=== PATIENT | female | born 1945 | race Caucasian/White ===

== ENCOUNTER → 2018-06-15 | Outpatient (CLI) | payer MEDICARE, OTHER ==
--- NOTE | 2018-06-15 14:53 | PCVCIMAG ---
APPROVED REPORT Laterality: Bilateral Indications Stenosis Doppler Spectral Velocity Analysis PSV / EDVPSV / EDV ECA (R) 160 / 28 cm/sECA (L) 83 / 25 cm/s dICA (R) 81 / 27 cm/sdICA (L) 96 / 33 cm/s [place] (R) 118 / 41 cm/smICA (L) 114 / 33 cm/s pICA (R) 138 / 29 cm/spICA (L) 130 / 37 cm/s Bulb (R) 86 / 29 cm/sBulb (L) 94 / 27 cm/s dCCA (R) 90 / 29 cm/sdCCA (L) 118 / 35 cm/s mCCA (R) 86 / 19 cm/smCCA (L) 94 / 27 cm/s Vert (R) 55 / 16 cm/sVert (L) 45 / 10 cm/s ICA/CCA 1.53ICA/CCA 1.10 Findings The right carotid bulb has moderate calcified plaque. The right proximal internal carotid artery shows 40-50% stenosis. The right common carotid artery shows no significant stenosis. The right external carotid artery shows >50% stenosis. The left carotid bulb has moderate calcified plaque. The left proximal internal carotid artery shows 40-50% stenosis. The left common carotid artery shows <40% stenosis. The left external carotid artery shows no significant stenosis. Conclusion 1. Right internal carotid artery stenosis (40-50%) 2. Left internal carotid artery stenosis (40-50%) 3. Antegrade vertebral flow
--- NOTE | 2018-06-15 16:08 | PCVCIMAG ---
EXAM: AORTOILIAC DUPLEX INDICATION: Peripheral arterial disease FINDINGS: AORTA: Suprarenal aorta measures maximum diameter of 2.7 cm. There is a fusiform infrarenal aortic aneurysm. The infrarenal aorta measures maximum diameter of 2.6 x 3.1 cm. No aortic stenosis. RIGHT COMMON ILIAC ARTERY: Maximum diameter is 1.4 cm. No significant stenosis. RIGHT EXTERNAL ILIAC ARTERY: No significant stenosis. LEFT COMMON ILIAC ARTERY: Maximum diameter is 1.5 cm. 90% stenosis LEFT EXTERNAL ILIAC ARTERY: No significant stenosis. IMPRESSION: 3.1 cm infrarenal abdominal aortic aneurysm. No right iliac stenosis. 90% stenosis proximal/mid left common iliac artery. LOC:[place] [id number]
--- NOTE | 2018-06-15 16:12 | PCVCIMAG ---
EXAM: BILATERAL LOWER EXTREMITY ARTERIAL DUPLEX INDICATION: Peripheral Arterial Disease. Leg pain. FINDINGS: Right Leg: Common femoral and profunda femoral arteries are patent. Increased systolic velocity 528 cm/s distal [place] superficial femoral artery consistent with 95% stenosis. The popliteal artery is patent. The anterior tibial, peroneal, and posterior tibial arteries are patent. Left Leg: Common femoral and profunda femoral arteries are patent. Increased systolic velocity 260 cm second distal [place] superficial femoral artery consistent with 50-60% stenosis. Popliteal artery is patent. The anterior tibial, peroneal, and posterior tibial arteries are patent. IMPRESSION: 95% stenosis distal [place] right superficial femoral artery. 50-60% stenosis distal [place] left superficial femoral artery. LOC:[id number]
--- NOTE | 2018-06-15 16:45 | PCVCIMAG ---
APPROVED REPORT Study performed: 06/15/2018 15:40:51 EXAM: Comprehensive 2D, Doppler, and color-flow Echocardiogram Patient Location: Echo lab Status: routine BSA: 1.85 HR: 70 bpmBP: 124/88 mmHg Rhythm: NSR Other Information Study Quality: Adequate Risk Factors: Cardiac Risk Factors: HTN Indications Dyspnea CAD Chest Pain 2D Dimensions IVSd: 14.01 (7-11mm)LVOT Diam: 21.41 (18-24mm) LVDd: 30.74 mm PWd: 12.28 (7-11mm)Ascending Ao: 31.71 (22-36mm) LVDs: 20.91 (25-40mm) Left Atrium: 46.65 (27-40mm) Aortic Root: 32.36 mm LV Single Plane 4CH: 64.01 % LV Single Plane 2CH: 67.79 % Biplane EF: 67.4 % Volumes Left Atrial Volume (Systole) Single Plane 4CH: 56.16 mLSingle Plane 2CH: 60.58 mL LA ESV Index: 32.00 mL/m2 Aortic Valve AoV Peak Narendra.: 1.93 m/s AO Peak Gr.: 14.89 mmHgLVOT Max P.55 mmHg LVOT Max V: 1.28 m/s UTE Vmax: 2.39 cm2 Mitral Valve MV Peak Gr.: 10.12 mmHg MV Mean Gr.: 3.81 mmHgE/A Ratio: 0.6 MV Decel. Time: 342.05 ms MV E Max Narendra.: 0.80 m/s MV A Narendra.: 1.32 m/s MV Max Narendra.: 1.59 m/s MV Mean Narendra.: 0.90 m/s MV VTI: 394.33 mm MV PHT: 77.56 ms MVA (PHT): 2.84 cm2 IVRT: 103.81 ms Pulmonary Valve PV Peak Narendra.: 1.05 m/sPV Peak Gr.: 4.42 mmHg Pulmonary Vein P Vein S: 0.26 m/sP Vein A: 0.41 m/s P Vein D: 0.33 m/sP Vein A Dur.: 141.9 msec P Vein S/D Ratio: 0.79 Tricuspid Valve TR Peak Narendra.: 2.53 m/s TR Peak Gr.: 25.58 mmHg Left Ventricle The left ventricle is normal size. There is normal LV segmental wall motion. Mild concentric left ventricular hypertrophy. Left ventricular systolic function is normal. The left ventricular ejection fraction is within the normal range. LVEF is 65%. Grade I - abnormal relaxation pattern. Right Ventricle The right ventricle is normal size. The right ventricular systolic function is normal. Atria The left atrium size is normal. The right atrium size is normal. Aortic Valve Mild aortic valve sclerosis. No aortic regurgitation is present. There is no aortic valvular stenosis. Mitral Valve Moderate posterior leaflet and annular calcification. No stenosis. Trace mitral regurgitation. No evidence of mitral valve stenosis. Tricuspid Valve The tricuspid valve is normal in structure. Mild tricuspid regurgitation with PAP of 33 mmHg. Pulmonic Valve The pulmonary valve is normal in structure. There is trace pulmonic valvular regurgitation. Great Vessels The aortic root is normal in size. IVC is normal in size and collapses >50% with inspiration. Pericardium There is no pericardial effusion. There is no pleural effusion. <Conclusion> The left ventricle is normal size. Mild concentric left ventricular hypertrophy. LVEF is 65%. Grade I - abnormal relaxation pattern. The right ventricular systolic function is normal. The left atrium size is normal. Mild aortic valve sclerosis. Moderate posterior leaflet and annular calcification. No stenosis. Trace mitral regurgitation. Mild tricuspid regurgitation with PAP of 33 mmHg. The aortic root is normal in size. There is no pericardial effusion.
== END | disposition home or self-care (01) ==
LOC: PCVCIMAG 14:16
PROVIDERS: ATTEND Internal Medicine Cardiovascular Disease
DX: I65.23 Occlusion and stenosis of bilateral carotid arteries (principal); I08.2 Rheumatic disorders of both aortic and tricuspid valves; R06.02 Shortness of breath; I25.10 Atherosclerotic heart disease of native coronary artery without angina pectoris; R93.1 Abnormal findings on diagnostic imaging of heart and coronary circulation; E78.00 Pure hypercholesterolemia, unspecified; I10 Essential (primary) hypertension; I73.9 Peripheral vascular disease, unspecified; I71.4 Abdominal aortic aneurysm, without rupture; M25.551 Pain in right hip; M25.552 Pain in left hip
CPT/HCPCS: 93306; 93880; 93925; 93978

== ENCOUNTER → 2018-12-09 | Outpatient (CLI) | payer MEDICARE, OTHER ==
--- NOTE | 2018-12-09 11:52 | PCVCIMAG ---
EXAM: AORTOILIAC DUPLEX INDICATION: Peripheral arterial disease FINDINGS: AORTA: Suprarenal aorta measures maximum diameter of 2.4 cm. There is a fusiform infrarenal aortic aneurysm. The infrarenal aorta measures maximum diameter of 2.6 x 3.1 cm. No aortic stenosis. RIGHT COMMON ILIAC ARTERY: Maximum diameter is 1.3 cm. No significant stenosis. RIGHT EXTERNAL ILIAC ARTERY: No significant stenosis. LEFT COMMON ILIAC ARTERY: Maximum diameter is 1.3 cm. No significant stenosis. LEFT EXTERNAL ILIAC ARTERY: No significant stenosis. IMPRESSION: 3.1 cm infrarenal abdominal aortic aneurysm unchanged since June 2018. Bilateral iliac stents remain patent. LOC:[id number]
--- NOTE | 2018-12-09 11:57 | PCVCIMAG ---
EXAM: RIGHT LOWER EXTREMITY ARTERIAL DUPLEX INDICATION: Peripheral Arterial Disease. Leg pain. FINDINGS: Right Leg: Common femoral and profunda femoral arteries are patent. Increased systolic velocity 358 cm/s mid superficial femoral artery at the proximal margin of prior stent consistent with 80% restenosis. Popliteal artery is patent. The anterior tibial, peroneal, and posterior tibial arteries are patent. 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 LOC:[id number]
== END | disposition home or self-care (01) ==
LOC: PCVCIMAG 07:53
PROVIDERS: ATTEND Nuclear Medicine Nuclear Cardiology
DX: I71.4 Abdominal aortic aneurysm, without rupture (principal); I70.201 Unspecified atherosclerosis of native arteries of extremities, right leg; Z87.891 Personal history of nicotine dependence
CPT/HCPCS: 93926; 93978

== ENCOUNTER → 2018-12-15 | Outpatient (CLI) | payer MEDICARE, OTHER | END | disposition home or self-care (01) | LOC: PCVCCLINIC 14:57 | PROVIDERS: ATTEND Nuclear Medicine Nuclear Cardiology | DX: I73.9 Peripheral vascular disease, unspecified (principal); I71.4 Abdominal aortic aneurysm, without rupture; I10 Essential (primary) hypertension; I25.10 Atherosclerotic heart disease of native coronary artery without angina pectoris; E78.00 Pure hypercholesterolemia, unspecified; Z72.89 Other problems related to lifestyle; Z91.041 Radiographic dye allergy status; Z72.0 Tobacco use | CPT/HCPCS: G0463 ==